=== PATIENT | male | born 1970 ===

== ENCOUNTER 2019-04-16 17:21 | Emergency (ER) | payer MEDICAID ==
[~2019-04-16] VITALS: Ht 180.3 cm; Wt 72.7 kg
[~2019-04-16 17:21] MED LIST: LIDOcaine 1% W/epiNEPHrine 1:100,000 20ml vial ONE
[2019-04-16] MEDS ORDERED: LIDOcaine 1% W/epiNEPHrine 1:200,000 10ml vial IJ ONE (18:35)
[2019-04-16] MEDS ORDERED: CEPH500C5 PO (18:37)
[2019-04-16] MEDS ORDERED: SULF1TAB49 PO (18:37)
[2019-04-16 19:06] VITALS: BP 122/82
== END 2019-04-16 19:09 | disposition home or self-care (01) ==
LOC: ER 17:21
DX: L02.512 Cutaneous abscess of left hand (principal); Z79.2 Long term (current) use of antibiotics
CPT/HCPCS: 10060; 26010; 99283